=== PATIENT | female | born 1995 | race Two or more races ===

== ENCOUNTER 2019-12-13 07:25 | Emergency (ER) | payer MEDICAID ==
[~2019-12-13] VITALS: Ht 170.2 cm; Wt 133.5 kg
[2019-12-13] MEDS ORDERED: DEXAMETHASONE 4 MG/ML, 1ML PO ONE (08:00)
[2019-12-13] MEDS ORDERED: ACETAMINOPHEN 500 MG TABLET PO ONE (08:00)
[2019-12-13] MEDS ORDERED: DEXAMETHASONE 4 MG TABLET ONE ×2 (08:02→08:03)
[2019-12-13] MEDS ORDERED: ACETAMINOPHEN 500 MG TABLET ONE (08:02)
--- NOTE | 2019-12-13 08:18 | NUR ---
PT MEDICATED PER APR. PT TO CONTINUOUS PULSE OX. BP. DISCUSSED POC WITH PT, NO OTHER NEEDS AT THIS TIME
[2019-12-13] MEDS ORDERED: DEXAMETHASONE 4 MG TABLET PO ONE (08:30)
[2019-12-13] MEDS ORDERED: ALBUTEROL SULFATE 2.5 MG/3 ML NPPB ONE (09:00)
[2019-12-13] MEDS ORDERED: ALBUTEROL SULFATE 2.5 MG/3 ML ONE (09:17)
[2019-12-13 09:21] VITALS: BP 109/65
== END 2019-12-13 09:56 | disposition home or self-care (01) ==
LOC: ED 09:12
DX: U07.1 COVID-19 (principal); J45.31 Mild persistent asthma with (acute) exacerbation; B34.9 Viral infection, unspecified; R00.0 Tachycardia, unspecified; Z87.891 Personal history of nicotine dependence
CPT/HCPCS: 36415; 71045; 87635; 93005; 94640; 99285; J7613